=== PATIENT | male | born 1930 | race Caucasian/White ===

== ENCOUNTER 2018-05-08 13:16 | Emergency (ER) | payer OTHER ==
--- OUTSIDE RECORDS SUMMARY | 2018-05-08 13:19 | XMS REPORT ---
:1930 Author Organization eClinicalWorks Care Team Providers Name Role Phone Diaz, Na Provider Role Unavailable Allergies, Adverse Reactions, Alerts Substance Reaction Event Type N.K.D.A. Info Not Available Non Drug Allergy Problems Problem Type Condition Code Onset Dates Condition Status Problem Hyperlipidemia, mixed E78.2 Active Problem Depression with anxiety F41.8 Active Problem Seborrheic dermatitis L21.9 Active Problem COPD (chronic obstructive pulmonary J44.9 Active disease) Assessment Unsteady gait R26.81 Active Problem Benign essential HTN I10 Active Problem Adult general medical examination Z00.00 Active Problem Unsteady gait R26.81 Active Problem Tremor R25.1 Active Problem GERD (gastroesophageal reflux K21.9 Active disease) Problem Sciatica M54.30 Active Assessment 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 Assessment Adult general medical examination Z00.00 Active Assessment 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 Assessment Hyperlipidemia, mixed E78.2 Active Problem 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 Problem 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 Problem Polyp of gallbladder K82.4 Active Problem 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 Problem Allergic rhinitis, seasonal J30.2 Active Medications Medication Code Code Instructions Start End Status Dosage System Date Date Lipitor [facility] 53938246638 40 MG Orally Active 1 tablet Once a day Nexium ND 44813917883 40 MG Orally Active 1 capsule Once a day Gabapentin ND 51399094553 600 MG Orally Active 1 tablet Once a day Xalatan [facility] 37680750413 0.005 % Active 1 drop into Ophthalmic Once affected a day eye in the evening Lexapro ND 19034214847 5 MG Orally Active 1 tablet Once a day Nasonex ND 64131556831 50 MCG/ACT Active 2 sprays in Nasally Once a each day nostril Simethicone [facility] 26996448011 125 MG Orally Active 1 tablet Four times a after meals day and at bedtime as needed Ferrous Sulfate [facility] 57896399304 325 (65 Fe) MG Active 1 tablet Orally Once a day Topamax [facility] 13005149489 25 MG Orally Active 1 tablet Twice a day Arcapta Neohaler [facility] 47268991401 75 MCG Active 1 capsule Inhalation Once a day Atorvastatin [facility] 60549043585 40 MG Active TAKE 1 Calcium TABLET BY MOUTH EVERY DAY Oxygen- [facility] 0 Active not defined Spiriva Respimat [facility] 40197830339 2.5 MCG/ACT Active 2 puffs Inhalation Once a day Nizoral [facility] 01108586756 2 % Externally Active not defined Aspirin 81 [facility] 92029630942 81 MG Orally Active 1 tablet Once a day Metoprolol [facility] 27577419314 25 MG Orally Active 1 tablet Tartrate Twice a day with food Ventolin HFA [facility] 26388312641 108 (90 Base) Active 2 puffs as MCG/ACT needed Inhalation every 6 hrs Results No Known Results Summary Purpose eClinicalWorks Submission
--- OUTSIDE RECORDS SUMMARY | 2018-05-08 13:19 | XMS REPORT ---
:1930 Author Organization eClinicalWorks Care Team Providers Name Role Phone Diaz, Na Provider Role Unavailable Allergies, Adverse Reactions, Alerts Substance Reaction Event Type N.K.D.A. 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 Assessment Sciatica M54.30 Active Assessment Vaccine for tetanus toxoid Z23 Active Assessment Depression with anxiety F41.8 Active Problem 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 Problem 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 Assessment Hyperlipidemia, mixed E78.2 Active Problem 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 Assessment 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 Problem Polyp of gallbladder K82.4 Active Medications Medication Code Code Instructions Start End Status Dosage System Date Date Metoprolol [facility] 99358026916 25 MG Orally Active 1 tablet Tartrate Twice a day with food Arcapta Neohaler [facility] 53963716337 75 MCG Active 1 capsule Inhalation Once a day Lipitor [facility] 14069491870 40 MG Orally Active 1 tablet Once a day Lexapro [facility] 64650749678 5 MG Orally Active 1 tablet Once a day Ferrous Sulfate [facility] 25961333857 325 (65 Fe) MG Active 1 tablet Orally Once a day Topamax [facility] 84690565609 25 MG Orally Active 1 tablet Twice a day Simethicone [facility] 71615176142 125 MG Orally Active 1 tablet Four times a after meals day and at bedtime as needed Nizoral [facility] 84442845361 2 % Externally Active not defined Xalatan [facility] 53419714308 0.005 % Active 1 drop into Ophthalmic Once affected a day eye in the evening Gabapentin [facility] 54880733848 600 MG Orally Active 1 tablet Once a day Aspirin 81 [facility] 15482857661 81 MG Orally Active 1 tablet Once a day Oxygen- [facility] 0 Active not defined Ventolin HFA [facility] 77196957057 108 (90 Base) Active 2 puffs as MCG/ACT needed Inhalation every 6 hrs Atorvastatin [facility] 26610405969 40 MG Active TAKE 1 Calcium TABLET BY MOUTH EVERY DAY Nasonex [facility] 47105223182 50 MCG/ACT Active 2 sprays in Nasally Once a each day nostril Nexium [facility] 51353365683 40 MG Orally Active 1 capsule Once a day Spiriva Respimat [facility] 02635607823 2.5 MCG/ACT Active 2 puffs Inhalation Once a day Results No Known Results Immunizations Vaccine Administration Date Td August 20, 2017 Summary Purpose eClinicalWorks Submission
--- OUTSIDE RECORDS SUMMARY | 2018-05-08 13:19 | XMS REPORT ---
:1930 Author Organization eClinicalWorks Care Team Providers Name Role Phone Diaz, Na Provider Role Unavailable Allergies No Known Allergies Problems Problem Type Condition Code Onset Dates Condition Status Problem Allergic rhinitis, seasonal J30.2 Active Problem Seborrheic dermatitis L21.9 Active Problem Hyperlipidemia, mixed E78.2 Active Problem Benign essential HTN I10 Active Problem GERD (gastroesophageal reflux K21.9 Active disease) Problem COPD (chronic obstructive pulmonary J44.9 Active disease) Problem Tremor R25.1 Active Problem Depression with anxiety F41.8 Active Problem Sciatica M54.30 Active Problem Unsteady gait R26.81 Active Problem 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
--- OUTSIDE RECORDS SUMMARY | 2018-05-08 13:19 | XMS REPORT ---
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 Problem Allergic rhinitis, seasonal J30.2 Active Medications Medication Code Code Instructions Start End Status Dosage System Date Date Ferrous Sulfate [facility] 97155287032 325 (65 Fe) MG Active 1 tablet Orally Once a day Lipitor ND 41718938473 40 MG Orally Active 1 tablet Once a day Xalatan [facility] 10352773431 0.005 % Active 1 drop into Ophthalmic Once affected a day eye in the evening Metoprolol ND 19262866434 25 MG Orally Active 1 tablet Tartrate Twice a day with food Topamax [facility] 28795279464 25 MG Orally Active 1 tablet Twice a day Atorvastatin ND 13670633302 40 MG Active TAKE 1 Calcium TABLET BY MOUTH EVERY DAY Spiriva Respimat ND 05766031327 2.5 MCG/ACT Active 2 puffs Inhalation Once a day Ventolin HFA [facility] 38800990488 108 (90 Base) Active 2 puffs as MCG/ACT needed Inhalation every 6 hrs Oxygen- [facility] 0 Active not defined Nexium ND 96995406354 40 MG Orally Active 1 capsule Once a day Simethicone [facility] 44885359846 125 MG Orally Active 1 tablet Four times a after meals day and at bedtime as needed Gabapentin [facility] 27307981032 600 MG Orally Active 1 tablet Once a day Aspirin 81 [facility] 33371369410 81 MG Orally Active 1 tablet Once a day Arcapta Neohaler [facility] 19552452259 75 MCG Active 1 capsule Inhalation Once a day Nizoral [facility] 27464213382 2 % Externally Active not defined Lexapro [facility] 34941073098 5 MG Orally Active 1 tablet Once a day Nasonex [facility] 42634711813 50 MCG/ACT Active 2 sprays in Nasally Once a each day nostril Results No Known Results Immunizations Vaccine Administration Date FluAD Feb 10, 2018 Summary Purpose eClinicalWorks Submission
[2018-05-08] MEDS ORDERED: LIDOCAINE 1% W/EPI 1:100,000 MDV 50 ML VIAL ONE (15:21)
--- NOTE | 2018-05-08 15:27 | RAD REPORT ---
EXAM DESCRIPTION: RAD - Foot Right 3 View - 05/08/2018 3:00 pm CLINICAL HISTORY: Right foot pain status post injury FINDINGS: No fracture or dislocation is seen. 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
--- NOTE | 2018-05-08 15:40 | EDPHYS ---
Physician Documentation [facility] Name: Nemesio Santillan Age: 87 yrs Sex: Male : 1930 Arrival Date: 05/08/2018 Time: 13:24 Bed 15 Private MD: ED Physician Ignacio Franz HPI: 05/08 15:10 This 87 yrs old Male presents to ER via Wheelchair with complaints of Foot omar Injury. 15:10 The patient presents with decreased range of motion, pain, that is acute. The omar complaints affect the right foot. Context: resulted from stubbing toe on door. Onset: The symptoms/episode began/occurred 1 day(s) ago. Modifying factors: The symptoms are alleviated by elevation of extremity, the symptoms are aggravated by movement. Associated signs and symptoms: The patient has no apparent associated signs or symptoms. Severity of symptoms: At their worst the symptoms were mild. The patient has not experienced similar symptoms in the past. Historical: - Allergies: 13:50 No Known Allergies; ss - Immunization history:: Adult Immunizations up to date, Last tetanus immunization: up to date. - Social history:: Smoking status: Patient/guardian denies using tobacco, the patient reports quitting approximately 16 years ago. - Ebola Screening: : Patient denies exposure to infectious person Patient denies travel to an Ebola-affected area in the 21 days before illness onset. - Family history:: not pertinent. ROS: 15:10 Constitutional: Negative for fever, chills, and weight loss, Eyes: Negative for injury, omar pain, redness, and discharge, ENT: Negative for injury, pain, and discharge, Neck: Negative for injury, pain, and swelling, Cardiovascular: Negative for chest pain, palpitations, and edema, Respiratory: Negative for shortness of breath, cough, wheezing, and pleuritic chest pain, Abdomen/GI: Negative for abdominal pain, nausea, vomiting, diarrhea, and constipation, Back: Negative for injury and pain, : Negative for injury, bleeding, discharge, and swelling, Skin: Negative for injury, rash, and discoloration, Neuro: Negative for headache, weakness, numbness, tingling, and seizure, Psych: Negative for depression, anxiety, suicide ideation, homicidal ideation, and hallucinations, Allergy/Immunology: Negative for hives, rash, and allergies, Endocrine: Negative for neck swelling, polydipsia, polyuria, polyphagia, and marked weight changes, Hematologic/Lymphatic: Negative for swollen nodes, abnormal bleeding, and unusual bruising. 15:10 MS/extremity: Positive for decreased range of motion, pain, of the right fourth toe. Exam: 15:10 Constitutional: This is a well developed, well nourished patient who is awake, alert, omar and in no acute distress. Head/Face: Normocephalic, atraumatic. Eyes: Pupils equal round and reactive to light, extra-ocular motions intact. Lids and lashes normal. Conjunctiva and sclera are non-icteric and not injected. Cornea within normal limits. Periorbital areas with no swelling, redness, or edema. ENT: Nares patent. No nasal discharge, no septal abnormalities noted. Tympanic membranes are normal and external auditory canals are clear. Oropharynx with no redness, swelling, or masses, exudates, or evidence of obstruction, uvula midline. Mucous membranes moist. Neck: Trachea midline, no thyromegaly or masses palpated, and no cervical lymphadenopathy. Supple, full range of motion without nuchal rigidity, or vertebral point tenderness. No Meningismus. Chest/axilla: Normal chest wall appearance and motion. Nontender with no deformity. No lesions are appreciated. Cardiovascular: Regular rate and rhythm with a normal S1 and S2. No gallops, murmurs, or rubs. Normal PMI, no JVD. No pulse deficits. Respiratory: Lungs have equal breath sounds bilaterally, clear to auscultation and percussion. No rales, rhonchi or wheezes noted. No increased work of breathing, no retractions or nasal flaring. Abdomen/GI: Soft, non-tender, with normal bowel sounds. No distension or tympany. No guarding or rebound. No evidence of tenderness throughout. Back: No spinal tenderness. No costovertebral tenderness. Full range of motion. Male : Normal genitalia with no discharge or lesions. Skin: Warm, dry with normal turgor. Normal color with no rashes, no lesions, and no evidence of cellulitis. Neuro: Awake and alert, GCS 15, oriented to person, place, time, and situation. Cranial nerves II-XII grossly intact. Motor strength 5/5 in all extremities. Sensory grossly intact. Cerebellar exam normal. Normal gait. Psych: Awake, alert, with orientation to person, place and time. Behavior, mood, and affect are within normal limits. 15:10 Musculoskeletal/extremity: ROM: full active range of motion, full passive range of motion, Circulation is intact in all extremities. Compartment Syndrome exam of affected extremity: is normal. DVT Exam: no pain, no swelling, no tenderness, negative Homans' sign noted on exam, no appreciated bluish discoloration, no erythema, no increased warmth. Vital Signs: 13:50 BP 125 / 61; Pulse 67; Resp 16; Temp 97.8(TE); Pulse Ox 92% on 1 lpm NC; Weight 107.05 ss kg; Height 5 ft. 10 in. (177.80 cm); Pain 4/10; 16:19 BP 117 / 68; Pulse 64; Resp 18; Temp 97.9; Pulse Ox 93% on 2 lpm NC; ph 13:50 Body Mass Index 33.86 (107.05 kg, 177.80 cm) 13:50 Pt arrivaed on only 1 L NC, and reports he is supposed to be on 2L. Pt switched to ED ss O2 tank and placed on 2L Laceration: 15:17 Wound Repair of 2cm ( 0.8in ) subcutaneous laceration to right fourth toe. Irregularly omar shaped.. Skin/tissue flap noted.. Distal neuro/vascular/tendon intact. Anesthesia: Local anesthetic administered with 3 mls of 1% lidocaine w/ Epi, Local anesthetic administered with 3 mls of 1% lidocaine w/ Epi. Wound prep: Moderate cleansing by me. Skin closed with 2 1-0 Prolene using interrupted sutures and sterile technique. Dressed with non-adherent dressing. Patient tolerated well. MDM: 14:43 Patient medically screened. omar 14:44 Patient medically screened. [facility] 15:13 Data reviewed: vital signs, nurses notes, radiologic studies. [facility] 05/08 13:40 Order name: Foot Right 3 View XRAY 05/08 15:10 Order name: Post-op shoe; Complete Time: 15:45 [facility] 05/08 15:10 Order name: Suture Tray at Bedside; Complete Time: 15:32 [facility] Administered Medications: 16:00 Drug: KeFLEX 500 mg Route: PO; ph 16:17 Follow up: Response: No adverse reaction ph Disposition: 05/08/18 15:39 Discharged to Home. Impression: Laceration without foreign body, right foot - plantar. - Condition is Stable. - Discharge Instructions: Laceration Care, Adult, Laceration Care, Adult, [id number]. - Prescriptions for Keflex 500 mg Oral Capsule - take 1 capsule by ORAL route every 6 hours for 10 days; 28 capsule. Tylenol- Codeine #3 300-30 mg Oral Tablet - take 2 tablets by ORAL route every 6 hours As needed; 20 tablet. - Medication Reconciliation Form, Thank You Letter, Antibiotic Education, Prescription Opioid Use form. - Follow up: Private Physician; When: 2 - 3 days; Reason: Recheck today's complaints, Continuance of care, Re-evaluation by your physician. Follow up: Dr. Brent Denny; When: 2 - 3 days; Reason: Recheck today's complaints, Re-evaluation by your physician. - Problem is new. - Symptoms have improved. Signatures: Dispatcher [employer] EDIgnacio Fitzgerald MD MD cha Smirch, Shelby, RN RN Isabel Webster RN RN ph Corrections: (The following items were deleted from the chart) 16:19 15:39 05/08/2018 15:39 Discharged to Home. Impression: Laceration without foreign body, ph right foot - plantar. Condition is Stable. Discharge Instructions: Laceration Care, Adult, Laceration Care, Adult, [id number]. Prescriptions for Keflex 500 mg Oral Capsule - take 1 capsule by ORAL route every 6 hours for 10 days; 28 capsule, Tylenol-Codeine #3 300-30 mg Oral Tablet - take 2 tablets by ORAL route every 6 hours As needed; 20 tablet. and Forms are Medication Reconciliation Form, Thank You Letter, Antibiotic Education, Prescription Opioid Use. Follow up: Private Physician; When: 2 - 3 days; Reason: Recheck today's complaints, Continuance of care, Re-evaluation by your physician. Follow up: Dr. Brent Denny; When: 2 - 3 days; Reason: Recheck today's complaints, Re-evaluation by your physician. Problem is new. Symptoms have improved. omar
--- NOTE | 2018-05-08 15:40 | ER ---
Nurse's Notes [facility] Name: Nemesio Santillan Age: 87 yrs Sex: Male : 1930 Arrival Date: 05/08/2018 Time: 13:24 Bed 15 Private MD: Diagnosis: Laceration without foreign body, right foot-plantar Presentation: 05/08 13:30 Presenting complaint: Patient states: "I was getting in the shower last night and I ss started to fall backwards and my toes got caught under the shower chair and I think I pulled them apart." reports moderate amount of bleeding from injury that occurred last night. Dressing in place. No bleeding noted at this time. Transition of care: patient was not received from another setting of care. Onset of symptoms was May 07, 2018. Risk Assessment: Do you want to hurt yourself or someone else? Patient reports no desire to harm self or others. Initial Sepsis Screen: Does the patient meet any 2 criteria? No. Patient's initial sepsis screen is negative. Does the patient have a suspected source of infection? No. Patient's initial sepsis screen is negative. Care prior to arrival: None. 13:30 Method Of Arrival: Wheelchair ss 13:30 Acuity: DEVORA 4 ss Historical: - Allergies: 13:50 No Known Allergies; ss - Immunization history:: Adult Immunizations up to date, Last tetanus immunization: up to date. - Social history:: Smoking status: Patient/guardian denies using tobacco, the patient reports quitting approximately 16 years ago. - Ebola Screening: : Patient denies exposure to infectious person Patient denies travel to an Ebola-affected area in the 21 days before illness onset. - Family history:: not pertinent. Screenin:49 Abuse screen: Denies threats or abuse. Denies injuries from another. Nutritional ss screening: No deficits noted. Tuberculosis screening: No symptoms or risk factors identified. Never had TB. Fall Risk None identified. Assessment: 14:49 General: Appears in no apparent distress. comfortable, Behavior is calm, cooperative. ss Pain: Complains of pain in right fourth toe and right fifth toe Pain currently is 5 out of 10 on a pain scale. Quality of pain is described as tender, Is continuous. Neuro: Level of Consciousness is awake, alert, obeys commands, Oriented to person, place, time, situation. Cardiovascular: Capillary refill < 3 seconds is brisk in bilateral fingers. Respiratory: Airway is patent Respiratory effort is even, unlabored, Respiratory pattern is regular, symmetrical. Derm: Skin is thin, with poor turgor. Musculoskeletal: Circulation, motion, and sensation intact. Range of motion: intact in all extremities. Injury Description: small laceration <1 cm noted between 4 th and 5 th digit. Vital Signs: 13:50 BP 125 / 61; Pulse 67; Resp 16; Temp 97.8(TE); Pulse Ox 92% on 1 lpm NC; Weight 107.05 ss kg; Height 5 ft. 10 in. (177.80 cm); Pain 4/10; 16:19 BP 117 / 68; Pulse 64; Resp 18; Temp 97.9; Pulse Ox 93% on 2 lpm NC; ph 13:50 Body Mass Index 33.86 (107.05 kg, 177.80 cm) 13:50 Pt arrivaed on only 1 L NC, and reports he is supposed to be on 2L. Pt switched to ED ss O2 tank and placed on 2L ED Course: 13:24 Patient arrived in ED. sb2 13:50 Triage completed. ss 13:50 Arm band placed on right wrist. ss 14:43 Ignacio Franz MD is Attending Physician. omar 14:49 Adina Kohli, ISAURO is Primary Nurse. 14:49 Patient has correct armband on for positive identification. Bed in low position. Call ss light in reach. 15:01 Foot Right 3 View XRAY In Process Unspecified. EDMS 15:39 Brent Denny DPM is Referral Physician. [facility] 15:44 Assist provider with lumbar puncture: Set up LP tray. Procedure was successful. Patient mh5 tolerated well. 16:18 Patient did not have IV access during this emergency room visit. ph Administered Medications: 16:00 Drug: KeFLEX 500 mg Route: PO; ph 16:17 Follow up: Response: No adverse reaction ph Outcome: 15:39 Discharge ordered by . omar 16:18 Discharged to home ambulatory, with significant other. ph 16:18 Condition: good 16:18 Discharge instructions given to patient, significant other, Instructed on discharge instructions, follow up and referral plans. medication usage, wound care, Demonstrated understanding of instructions, follow-up care, medications, wound care, Prescriptions given X 2. 16:19 Patient left the ED. ph Signatures: Dispatcher [employer] EDIgnacio Fitzgerald MD MD cha Smirch, Shelby, RN RN Isabel Vazquez RN RN Lilly [facility]
[2018-05-08] MEDS ORDERED: CEPHALEXIN 250 MG CAP ONE (15:50)
== END 2018-05-08 16:19 | disposition home or self-care (01) ==
LOC: ER 13:16
PROC: 0JQQ0ZZ Repair Right Foot Subcutaneous Tissue and Fascia, Open Approach (ICD-10-PCS; principal; 2018-05-08)
DX: S91.114A Laceration without foreign body of right lesser toe(s) without damage to nail, initial encounter (principal); X58.XXXA Exposure to other specified factors, initial encounter; M81.0 Age-related osteoporosis without current pathological fracture; Z87.891 Personal history of nicotine dependence
CPT/HCPCS: 62270; 99284

== ENCOUNTER 2019-10-28 07:23 | Day surgery (SDC) | payer OTHER ==
[2019-10-26 12:52] LABS: Protime INR 1.12
--- NOTE | 2019-10-26 12:59 | RAD REPORT ---
EXAM DESCRIPTION: RAD - Chest Pa And Lat (2 Views) - 10/26/2019 12:52 pm CLINICAL HISTORY: preop Chest pain. COMPARISON: CHEST PA AND LAT 2 VIEW dated 02/15/2010; CHEST SINGLE VIEW dated 12/13/2009; CHEST PA AND LAT 2 VIEW dated 01/18/2009 FINDINGS: Emphysematous changes are present. The heart is mildly prominent with a tortuous thoracic aorta. No displaced fractures. IMPRESSION: Prominent COPD.
[~2019-10-28 07:23] MED LIST: HEPA 1000U/500MLS 2,000 UNIT/1,000 ML BAG IV ONE; LIDOCAINE 1% MPF 30 ML VIAL ONE
--- OUTSIDE RECORDS SUMMARY | 2019-10-28 07:30 | XMS REPORT | Continuity of Care Document ---
:1930 Author Organization [facility] t Address [address] [place] [address] Care Team Providers Name Role Phone Unavailable Unavailable Unavailable Problems Condition Condition Condition Status Onset Resolution Last Treating Co mments Source Name Details Category Date Date Treatment Clinician Date Allergic Allergic Problem [facility], [facility] - seasonal seasonal [facility] Seborrheic Seborrheic Problem Active [facility] dermatitis dermatitis Kimberley kes - [facility] Hyperlipid Hyperlipid Diagnosis Active [facility] emia, emia, [facility] - mixed mixed [facility] Benign Benign Problem Active [facility] essential essential [facility] s - HTN HTN Memoria l Outpati ent Clinics GERD GERD Problem Active [facility] (gastroeso (gastroeso Kimberley kes - phageal phageal Memoria reflux reflux l disease) disease) Outpat i ent Clinics COPD COPD Diagnosis Active [facility] (chronic (chronic [facility] - obstructiv obstructiv Me moria e e l pulmonary pulmonary Outp ati disease) disease) ent Clinics Tremor Tremor Problem [facility] Depression Depression Diagnosis Active [facility] with with [facility] - anxiety anxiety [facility] Sciatica Sciatica Problem [facility] Unsteady Unsteady Problem [facility] gait gait [facility] 3-vessel 3-vessel Problem Active [facility] CAD CAD [facility] 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 Kimberley kes - [facility] Osteoarthr Osteoarthr Problem Active [facility] itis of itis of [facility] - multiple multiple [facility] a joints joints l [facility] Polyp of Polyp of Problem Active [facility] gallbladde gallbladde Kimberley kes - r r [facility] ent [facility]ics Adult Adult Problem Active [facility] general [facility] exam[facility] examinatio l n n [facility] ent Clinics Screening Screening Diagnosis Active [facility] PSA PSA [facility] - (prostate (prostate Bertram tara specific specific l antigen) antigen) Outnht ent Clinics Allergic Allergic Diagnosis Active [facility] conjunctiv conjunctiv Kimberley kes - itis of itis of Memoria both eyes both eyes l [facility] ent Clinics Allergies, Adverse Reactions, Alerts This patient has no known allergies or adverse reactions. Medications Ordered Filled Start Stop Current Ordering Indication Dosage Frequency Signature Comments Components Source Medication Medication Date Date Medication? Clinician (SIG) Name Name Azelastine Azelastine 2018-05 Yes Na Diaz [address] [facility] HCl HCl 2-18 into [facility] - 00:00: affected Memoria 00 eye l [facility] ent Clinics Lexapro Lexapro Yes Na Diaz [address] [facility] Metoprolol Metoprolol Yes Na Diaz [address] [facility] Tartrate Tartrate with food Kimberley kes - Memoria l [facility]ics Lipitor Lipitor Yes Na Diaz [address] [facility] Nizoral Nizoral Yes Na Diaz not [facility] defined [facility] Gabapentin Gabapentin Yes Na Diaz [address] [facility] Aspirin 81 Aspirin 81 Yes Na Diaz [address] [facility] Oxygen- Oxygen- Yes Na Diaz not [facility] defined [facility] Ventolin Ventolin Yes Na Diaz [address] [facility] HFA HFA needed [facility]ics Atorvastati Atorvastati Yes Na Diaz TAKE [address] [facility] n Calcium n Calcium TABLET BY [facility] - MOUTH Memoria EVERY DAY l [facility] ent Clinics Nasonex Nasonex Yes Na Diaz [address] in each [facility] - nostril Memoria l [facility] ent [facility]ics Nexium Nexium Yes Na Diaz [address] [facility]ics Spiriva Spiriva Yes Na Diaz [address] Respimat Respimat [facility]ics Ketoconazol Ketoconazol Yes Na Diaz APPLY TO [facility] e e AFFECTED [facility] - AREA Memoria TOPICALLY l TWICE A Outpati DAY ent Clinics Xalatan Xalatan Yes Na Diaz [address] [facility] into [facility] - affected [facility] eye in the l evening [facility] Arcapta Arcapta Yes Na Diaz [address] Neohaler Neohaler [facility] Topamax Topamax Yes Na Diaz [address] [facility] Simethicone Simethicone Yes Na Diaz [address] [facility] after [facility] - meals and [facility]oria at bedtime l as needed [facility] Ferrous Ferrous Yes Na Diaz [address] Sulfate Sulfate [facility] Immunizations Ordered Filled Immunization Date Status Comments Sourc e Immunization Name Name FluAD FluAD 2019-03-[address] [facility] FluAD FluAD 2018-02-[address] [facility]00 [facility] Td Td 2017-08-[address] [facility] Procedures This patient has no known procedures. Encounters Start End Encounter Admission Attending Care Care Encounter Source Date/Time Date/Time Type Type Clinicians Facility Department ID 2019-04-28 2019-04-28 [facility] [id number] [facility] 10:40:00 10:40:00 Jaco Solarsi [facility] 2019-03-05 2019-03-05 [facility] [id number] [facility] 13:40:00 13:40:00 t [email or web address] Medicine Outpati ent Clinics 2018-11-04 2018-11-04 [facility] [id number] [facility] 10:40:00 10:40:00 Jaco Solarsi [facility] Medicine [facility] 2018-05-19 2018-05-19 [facility] [id number] [facility] 13:45:00 13:45:00 Jaco Solarsi [facility] Medicine [facility] 2018-05-08 2018-05-08 [facility] [id number] [facility] 10:30:00 10:30:00 t [email or web address] Medicine Outpati ent Clinics 2018-02-10 2018-02-10 [facility] [id number] [facility] 09[facility]30:00 09:30:00 t [email or web address] Medicine Outpati ent Clinics 2017-11-04 2017-11-04 [facility] [id number] [facility] [address] 10:00:00 10:00:00 Jaco Solarsi [facility] Medicine Outpati ent Clinics 2017-09-05 2017-09-05 [facility] [id number] [address] 15:57:00 15:57:00 Jaco Solarsi [facility] Medicine Outpati ent Clinics 2017-08-20 2017-08-20 [facility] [id number] 08:30:00 08:30:00 Jaco Solarsi [facility] Outpati ent Clinics Results This patient has no known results.
[2019-10-28] MEDS ORDERED: NA CHLORIDE 0.9% 500 ML ONE (07:53)
[2019-10-28] MEDS ORDERED: NA CHLORIDE 0.9% 0 ML ONE (08:31)
[2019-10-28] MEDS ORDERED: MIDAZOLAM HCL 2 MG/2 ML INJ ONE ×2 (08:31→09:00)
[2019-10-28] MEDS ORDERED: FENTANYL CITR 100 MCG/2 ML ONE (08:31)
[2019-10-28] MEDS ORDERED: ATROPINE SULF 1 MG/10 ML SYR IV ONE (08:31)
[2019-10-28] MEDS ORDERED: NITROGLYCERIN 100 MCG/ML SYR (for cath lab use only) IV ONE (08:32)
[2019-10-28] MEDS ORDERED: NITROGLYCERIN/D5W 0 MG/0 ML BTL IV ONE (08:32)
[2019-10-28] MEDS ORDERED: HEPA 1000U/500MLS 2,000 UNIT/1,000 ML BAG IV ONE (08:36)
[2019-10-28] MEDS ORDERED: METHYLPREDNISOLONE 125 MG INJ ONE (09:01)
--- NOTE | 2019-10-28 09:46 | OP ---
Date of Procedure: 10/28/2019 Surgeon: Guanakito Starr MD Leave Coordinator: Gabi Yao. The patient will be at bedrest for 2 hours. He will go home today. I will see him in the office in the next 2 weeks. We will do serial ultrasounds or CT angiogram of his aorta in the future for teresa almeida. I would like to note that the patient is allergic to iodine and he did receive Solu-Medrol IV a nd p.o. prednisone before the procedure. Procedures Performed: Left heart catheterization, selective coronary arteriogram, and abdominal bianka ogram. Indication: Chest pain, positive stress test, abdominal aortic aneurysm. The patient was brought to the kiln labourer. He is 89. He received Versed and fentanyl for sedation, prepped and draped in the ro utine sterile fashion. A 6-Turkish sheath introduced in the right common femoral artery. Angio-Seal was used to close the case. A JL4 was used to cannulate the left main. The right iliacs were very t ortuous. I had to use a Wholey for exchange. However, injection of the left main showed a normal le ft main, diffuse plaquing in the circumflex, nondominant left system. The mid LAD stent that was pat ent was 0% residual. Using the long Wholey wire, we exchanged to the JR4 catheter. The JR4 cannulat ed the right main injection. They have showed a patent right coronary large vessel, diffuse plaquing , right dominant. A pigtail catheter was then used to do the abdominal angiogram with runoff. The p igtail catheter was advanced selectively above the renals. Renal abdominal angiogram showed normal r enals, normal splenic artery, normal hepatic artery. The aorta was diffusely enlarged, was fusiform, was tortuous with significant plaque buildup. It was not saccular and measured about 4.5 cm consist ent with what the ultrasound shows. There was a very tortuous iliac with diffuse plaquing, but no fo monster stenosis. There were no complications. Blood Loss: 5 mL. Postoperative Diagnosis: Coronary artery disease, moderate and abdominal aortic aneurysm, moderate s ize, no dissection. Plan: Plan is for medical therapy. Anesthesia: Total conscious sedation was 45 minutes. NB/MODL Voice ID: [id number] Report ID: [id number]
[2019-10-28 11:48] VITALS: BP 132/60; TEMP 97; O2SAT 94
== END 2019-10-28 11:35 | disposition home health service (06) ==
LOC: CCL 07:23
DX: I25.10 Atherosclerotic heart disease of native coronary artery without angina pectoris (principal); I71.4 Abdominal aortic aneurysm, without rupture; I65.23 Occlusion and stenosis of bilateral carotid arteries; I73.9 Peripheral vascular disease, unspecified; I10 Essential (primary) hypertension; E78.5 Hyperlipidemia, unspecified; Z11.59 Encounter for screening for other viral diseases; Z95.5 Presence of coronary angioplasty implant and graft; Z79.82 Long term (current) use of aspirin; Z87.891 Personal history of nicotine dependence; Z82.49 Family history of ischemic heart disease and other diseases of the circulatory system
CPT/HCPCS: 36415; 85610; 85730; 71046; 36200; 93454; U0002; C1893; C1760; J2250; J3010; J7040; J2930; J0583

== ENCOUNTER 2021-04-07 01:02 | Emergency (ER) | payer OTHER ==
--- OUTSIDE RECORDS SUMMARY | 2021-04-07 01:05 | XMS REPORT | Continuity of Care Document ---
:1930 Author Organization [facility] t Address [address] [place] [address] Care Team Providers Name Role Phone Unavailable Unavailable Unavailable Problems This patient has no known problems. Allergies, Adverse Reactions, Alerts This patient has no known allergies or adverse reactions. Medications Ordered Filled Start Stop Current Ordering Indication Dosage Frequency Signature Comments Components Source Medication Medication Date Date Medication? Clinician (SIG) Name Name Lexapro Lexapro Yes Na Diaz [address] [facility] Metoprolol Metoprolol Yes Na Diaz [address] [facility] Tartrate Tartrate with food Kimberley kes - Memoria l [facility] ent Clinics Lipitor Lipitor Yes Na Diaz [address] [facility] Nizoral Nizoral Yes Na Diaz not [facility] defined [facility] Aspirin 81 Aspirin 81 Yes Na Diaz [address] [facility] Oxygen- Oxygen- Yes Na Diaz not [facility] defined [facility] Ventolin Ventolin Yes Na Diaz [address] [facility] HFA HFA needed [facility] Lipitor Lipitor Yes Na Diaz [address] [facility] Nasonex Nasonex Yes Na Diaz [address] in each [facility] - nostril [facility] l [facility] ent [facility]ics Nexium Nexium Yes Na Diaz [address] [facility]ics Spiriva Spiriva Yes Na Diaz [address] Respimat Respimat [facility] Xalatan Xalatan Yes Na Diaz [address] [facility] into [facility] - affected [facility]oria eye in the l evening [facility]ics Arcapta Arcapta Yes Na Diaz [address] Neohaler Neohaler [facility] Topamax Topamax Yes Na Diaz [address] [facility] Simethicone Simethicone Yes Na Diaz [address] [facility] after [facility] - meals and Memoria at bedtime l as needed [facility]ics Ferrous Ferrous Yes Na Diaz [address] Sulfate Sulfate [facility] Ketoconazol Ketoconazol Yes Na Diaz APPLY TO [facility] e e AFFECTED [facility] - AREA Memoria TOPICALLY l TWICE A Outpati DAY ent Clinics Restasis Restasis Yes Na Diaz [address] [facility] affected [facility] eye l Outpati ent Clinics Ipratropium Ipratropium Yes Na Diaz [address] [place] in each [facility] - nostril [facility] l [facility] Lexapro Lexapro Yes Na Diaz [address] [facility] Latanoprost Latanoprost Yes Na Diaz [address] [facility] into [facility] - affected [facility] eye in the l evening Outpati ent Clinics Trelegy Trelegy Yes Na Diaz [address] [facility] Ellipta Ellipta [facility] Gabapentin Gabapentin Yes Na Diaz [address] [facility] Azelastine Azelastine Yes Na Diaz [address] [facility] HCl HCl into [facility] - affected [facility] eye l [facility] Immunizations Ordered Filled Immunization Date Status Comments Sour e Immunization Name Name FluAD FluAD 2019-03-[address] [facility] FluAD FluAD 2018-02-[address] [facility] Td Td 2017-08-[address] [facility] Procedures This patient has no known procedures. Encounters Start End Encounter Admission Attending Care Care Encounter Source Date/Time Date/Time Type Type Clinicians Facility Department ID 2020-10-24 2020-10-24 Outpatient [facility] [id number] [facility] 2020-10-24 2020-10-24 Outpatient [facility] [id number] [facility] 2020-10-12 2020-10-12 Outpatient [facility] [id number] [facility] 2020-04-27 2020-04-27 Outpatient [facility] [id number] [facility] 2020-04-11 2020-04-11 Outpatient [facility] [id number] [facility] 2019-10-27 2019-10-27 [facility] [id number] [facility] 10[facility]20:00 10:20:00 [place] [employer]Supp s - [facility] l Medicine Outpati ent Clinics 2019-04-28 2019-04-28 [facility] [id number] [facility] 10:40:00 10:40:00 t [place] [employer] s - Drive [facility] Family [facility] l Medicine Outpati ent Clinics 2019-03-05 2019-03-05 [facility] [id number] 13:40:00 13:40:00 t [place] [employer]Supp s - Drive [facility] Family Medicine l Medicine Outpati ent Clinics 2018-11-04 2018-11-04 [facility] [id number] [facility] 10:40:00 10:40:00 t A[place]on Afton [employer] s - Drive [facility] Family [facility] l Medicine Outpati ent Clinics 2018-05-19 2018-05-19 [facility] [id number] [facility] 13:45:00 13:45:00 t [place] Afton [employer] s - Drive [facility] Family [facility] l Medicine Outpati ent Clinics 2018-05-08 2018-05-08 [facility] [id number] [facility] 10:30:00 10:30:00 t Kira Talent [facility] Medicine Outpati ent Clinics 2018-02-10 2018-02-10 [facility] [id number] [facility] 09:30:00 09:30:00 t Kira Talent [facility] Medicine Outpati ent Clinics 2017-11-04 2017-11-04 [facility] [id number] [facility] [address] 10:00:00 10:00:00 t Kira Talent [facility] Medicine Outpati ent Clinics 2017-09-05 2017-09-05 [facility] [id number] [facility] 15:57:00 15:57:00 t Kira Talent [facility] Medicine Outpati ent Clinics 2017-08-20 2017-08-20 [facility] [id number] 08:30:00 08:30:00 t Kira Talent [facility] Outpati ent Clinics Results This patient has no known results.
[2021-04-07] MEDS ORDERED: NA CHLORIDE 0.9% 1,000 ML ONE ×3 (01:53→08:37)
[2021-04-07] MEDS ORDERED: FAMOTIDINE 20 MG/2 ML VIAL IV ONE (01:53)
[2021-04-07] MEDS ORDERED: ONDANSETRON 4 MG/2 ML VIAL ONE ×3 (01:53→07:37)
[2021-04-07] MEDS ORDERED: MORPHINE 4 MG/ML SYR ONE (01:53)
[2021-04-07 02:15] LABS: Absolute Lymphocytes (CBC) 1.4 K/uL (0.7-4.9); Basophils % 0.1 % (0-1.3); Hematocrit 52.4 % (39.6-49.0); Lymphocytes % 7.7 % (15.3-44.8); MPV 9.7 fL (7.6-11.3); RBC Red Blood Cell Count 5.25 M/uL (4.33-5.43)
[2021-04-07 02:30] LABS: Albumin 3.7 g/dL (3.4-5.0); Bilirubin Direct 0.1 mg/dL (0-0.2); Bilirubin Total 0.5 mg/dL (0.2-1.0)
[2021-04-07] MEDS ORDERED: METOCLOPRAMIDE 10 MG/2mL INJ ONE (03:50)
--- NOTE | 2021-04-07 03:55 | RAD REPORT ---
EXAM DESCRIPTION: CT - Abdomen Pelvis W Contrast - 04/07/2021 3:42 am CLINICAL HISTORY: Abdominal pain COMPARISON: 2013 TECHNIQUE: Computed axial tomography of the abdomen pelvis was obtained. 100 cc Isovue-300 was admin istered intravenously. Oral contrast was not requested which limits evaluation of bowel. All CT scans are performed using dose optimization technique as appropriate and may include automated exposure control or mA/KV adjustment according to patient size. FINDINGS: Portal venous air is present. No free air. Pneumatosis intestinalis is not visualized Otherwise liver, pancreas, adrenals and kidneys demonstrate no significant abnormality. Splenic granu lomata. Cholelithiasis is present. Gallbladder is distended. Mild to moderate anterior subluxation L5 on S1. Spondylolysis L5. Aneurysm of lower abdominal aorta with AP diameter of 4.7 centimeters contains a large amount of thro mbus. There is no evidence of diverticulitis. Mesenteric calcifications without significant change. No soft tissue component noted. Ventral hernia repair IMPRESSION: Portal venous air may indicate bowel ischemia. Cholelithiasis. Gallbladder is distended. 4.7 centimeter infrarenal abdominal aortic aneurysm
[2021-04-07] MEDS ORDERED: PIPERACIL/TAZO 3.375 GM VIAL IV ONE (04:41)
--- NOTE | 2021-04-07 05:51 | ER ---
Nurse's Notes [facility] Name: Nemesio Santillan Age: 89 yrs Sex: Male : 1930 Arrival Date: 04/07/2021 Time: 01:05 Bed 14 Private MD: Diagnosis: Lower abdominal pain, unspecified-Possible Bowel Ischemia;Nausea with vomiting, unspecified Presentation: 04/07 01:25 Chief complaint: Patient states: he started having abdominal pain, vomiting and bb diarrhea since approx 1999 last night denies fever. Coronavirus screen: vomiting. Ebola Screen: No symptoms or risks identified at this time. Initial Sepsis Screen: Does the patient meet any 2 criteria? No. Patient's initial sepsis screen is negative. Does the patient have a suspected source of infection? No. Patient's initial sepsis screen is negative. Risk Assessment: Do you want to hurt yourself or someone else? Patient reports no desire to harm self or others. Onset of symptoms was April 06, 2021. 01:25 Method Of Arrival: Wheelchair bb 01: Acuity: DEVORA 3 bb Triage Assessment: General: Appears in no apparent distress. uncomfortable, Behavior is calm, cooperative. bb Pain: Complains of pain in abdomen. Neuro: Level of Consciousness is awake, alert, obeys commands, Oriented to person, place, time, situation. Cardiovascular: Capillary refill < 3 seconds. Respiratory: Respiratory effort is unlabored, Respiratory pattern is regular. GI: Abdomen is round Reports lower abdominal pain, diarrhea, vomiting. Derm: Skin is clammy, Skin is pale, Skin temperature is cool. Musculoskeletal: Circulation, motion, and sensation intact. Historical: - Allergies: Sulfa (Sulfonamide Antibiotics); bb - Home Meds: Unable to obtain [Active]; bb - Immunization history:: Adult Immunizations up to date, Client reports receiving the 2nd dose of the Covid vaccine. - Social history:: Smoking status: Patient/guardian denies using tobacco. Screenin: Abuse screen: Denies threats or abuse. Denies injuries from another. Nutritional mr2 screening: No deficits noted. Tuberculosis screening: No symptoms or risk factors identified. Fall Risk None identified. Assessment: : GI: Reports lower abdominal pain, intolerance of fluids, intolerance of food, nausea, mr2 vomiting. 05:46 Reassessment: initiated transfer to [facility] Dr Allen spoke to vascular bb physician who accepted pt but awaiting contract administrator approval. 07:04 Reassessment: Lactic Acid = 2.8, critical lab report received from [facility] sl2 instructor adjunct pharmacy technician, critical results reported to EDP, Dr Allen. 07:15 Reassessment:. General: Appears in no apparent distress. uncomfortable, Behavior is vg1 calm, cooperative. Pain: Complains of pain in abdomen Pain currently is 4 out of 10 on a pain scale. Neuro: Level of Consciousness is awake, alert, obeys commands, Oriented to person, place, time, situation. Cardiovascular: Patient's skin is warm and dry. Respiratory: Airway is patent Respiratory effort is even, unlabored, Respiratory pattern is tachypnea. GI: Abdomen is round Reports lower abdominal pain, intolerance of fluids, intolerance of food, nausea, vomiting. : No signs and/or symptoms were reported regarding the genitourinary system. EENT: No signs and/or symptoms were reported regarding the EENT system. Derm: Skin is intact, is healthy with good turgor. Musculoskeletal: Circulation, motion, and sensation intact. Vital Signs: 01:25 BP 162 / 68; Pulse 59; Resp 16 S; Temp 97.4(O); Pulse Ox 95% on R/A; Weight 108.86 kg bb (R); Height 5 ft. 10 in. (177.80 cm) (R); Pain 6/10; 05:32 BP 168 / 82; Pulse 64; Resp 18; Temp 98.3; Pulse Ox 97% on R/A; mr2 07:30 BP 157 / 76; Pulse 90; Resp 24; Pulse Ox 94% on 2 lpm NC; vg1 08:00 BP 161 / 70; Pulse 89; Resp 18; Pulse Ox 93% on 2 lpm NC; vg1 01:25 Body Mass Index 34.44 (108.86 kg, 177.80 cm) ED Course: 01:05 Patient arrived in ED. bp1 01:11 Bed in low position. Call light in reach. Side rails up X2. mr2 01:11 No provider procedures requiring assistance completed. Inserted saline lock: 20 gauge mr2 in left antecubital area, using aseptic technique. 01:27 Triage completed. bb 01:27 Yolis Phipps FNP-C [facility] kb 01:27 Arm band placed on Patient placed in an exam room, on a stretcher, on pulse oximetry. bb 01:35 Sandeep Allen MD is Attending Physician. 7 02:10 Binh Rodgers, ISAURO is Primary Nurse. mr2 03:41 CT Abd/Pelvis - IV Contrast Only In Process Unspecified. EDMS 07:22 Attending Physician role handed off by Sandeep Allen MD omar 07:22 Ignacio Franz MD is Attending Physician. omar 08:51 Patient transferred, IV remains in place. vg1 Administered Medications: 02:10 Drug: NS 0.9% 1000 ml Route: IV; Rate: 1000 ml; Site: left antecubital; bb 02:11 Drug: morphine 2 mg Route: IVP; Site: left antecubital; mr2 02:11 Drug: Zofran (Ondansetron) 4 mg Route: IVP; Site: left antecubital; mr2 02:11 Drug: Pepcid (famotidine) 20 mg Route: IVP; Site: left antecubital; mr2 03:59 Drug: Reglan (metoCLOPramide) 10 mg Route: IVP; Site: left antecubital; mr2 04:00 Drug: morphine 2 mg Route: IVP; Site: left antecubital; mr2 04:43 Drug: Zosyn (piperacillin-tazobactam) 3.375 grams Route: IVPB; Infused Over: 60 mins; mr2 Site: right antecubital; 05:30 Follow up: IV Status: Completed infusion; IV Intake: 100ml vg1 07:32 Drug: NS 0.9% 1000 ml Route: IV; Rate: 1 bolus; Site: left antecubital; vg1 08:50 Follow up: IV Status: Completed infusion; IV Intake: 1000ml vg1 07:43 Drug: vancoMYCIN 1 grams Route: IVPB; Infused Over: 2 hrs; Site: left antecubital; vg1 08:50 Follow up: IV Status: Infusion continued upon transfer vg1 08:45 Drug: NS 0.9% 1000 ml Route: IV; Rate: 1 bolus; Site: left antecubital; vg1 08:50 Follow up: IV Status: Infusion continued upon transfer vg1 Intake: 05:30 IV: 100ml; Total: 100ml. vg1 08:50 IV: 1000ml; Total: 1100ml. vg1 Outcome: 05:49 ER care complete, transfer ordered by . [facility] 08:51 Transferred by ground EMS vg1 08:51 Condition: stable 08:51 Instructed on the need for transfer. 08:51 Patient left the ED. vg1 Signatures: Dispatcher [employer] EDMS Yolis Phipps, BABCOCK TESTER-C BABCOCK TESTER-Ignacio Gonsalez MD MD cha Ballard, Brenda, RN RN Deedee Osborne, RN RN vg1 Inga Hollins Maurice, MD MD [facility] Binh Rodgers, RN RN mr2 Yuli Colon, RN RN sl2
--- NOTE | 2021-04-07 05:51 | EDPHYS ---
Physician Documentation [facility] Name: Nemesio Santillan Age: 89 yrs Sex: Male : 1930 Arrival Date: 04/07/2021 Time: 01:05 Bed 14 Private MD: ALEJANDRO Physician Ignacio Franz HPI: 04/07 01:46 This 89 yrs old Male presents to ER via Wheelchair with complaints of Vomiting. mh7 01:46 The patient presents to the emergency department with nausea, that is moderate, mh7 vomiting, that is intermittent, described as clear fluid, diarrhea, that is intermittent, abdominal pain, of the abdomen diffusely, described as intermittent, vague,\E\ waxing and waning, and does not radiate. Onset: The symptoms/episode began/occurred yesterday, at 20:00. Possible causes: bad food exposure, possibly bad home food. The symptoms are aggravated by nothing. The symptoms are alleviated by nothing. Associated signs and symptoms: Pertinent negatives: anorexia, belching, constipation, dysuria, fever, flatulence, GI bleeding, hematuria. Severity of symptoms: At their worst the symptoms were moderate last night, in the emergency department the symptoms have improved moderately. Historical: - Allergies: : Sulfa (Sulfonamide Antibiotics); bb - Home Meds: : Unable to obtain [Active]; bb - Immunization history:: Adult Immunizations up to date, Client reports receiving the 2nd dose of the Covid vaccine. - Social history:: Smoking status: Patient/guardian denies using tobacco. ROS: 01:46 Constitutional: Negative for fever, chills, and weight loss, Eyes: Negative for injury, mh7 pain, redness, and discharge, ENT: Negative for injury, pain, and discharge, Neck: Negative for injury, pain, and swelling, Cardiovascular: Negative for chest pain, palpitations, and edema, Respiratory: Negative for shortness of breath, cough, wheezing, and pleuritic chest pain, Back: Negative for injury and pain, : Negative for injury, bleeding, discharge, and swelling, MS/Extremity: Negative for injury and deformity, Skin: Negative for injury, rash, and discoloration, Neuro: Negative for headache, weakness, numbness, tingling, and seizure, Psych: Negative for depression, anxiety, suicide ideation, homicidal ideation, and hallucinations, Allergy/Immunology: Negative for hives, rash, and allergies, Endocrine: Negative for neck swelling, polydipsia, polyuria, polyphagia, and marked weight changes, Hematologic/Lymphatic: Negative for swollen nodes, abnormal bleeding, and unusual bruising. Exam: 01:46 Constitutional: This is a well developed, well nourished patient who is awake, alert, mh7 and in no acute distress. Head/Face: Normocephalic, atraumatic. Eyes: Pupils equal round and reactive to light, extra-ocular motions intact. Lids and lashes normal. Conjunctiva and sclera are non-icteric and not injected. Cornea within normal limits. Periorbital areas with no swelling, redness, or edema. Neck: Trachea midline, no thyromegaly or masses palpated, and no cervical lymphadenopathy. Supple, full range of motion without nuchal rigidity, or vertebral point tenderness. No Meningismus. Chest/axilla: Normal chest wall appearance and motion. Nontender with no deformity. No lesions are appreciated. Cardiovascular: Regular rate and rhythm with a normal S1 and S2. No gallops, murmurs, or rubs. Normal PMI, no JVD. No pulse deficits. Respiratory: Lungs have equal breath sounds bilaterally, clear to auscultation and percussion. No rales, rhonchi or wheezes noted. No increased work of breathing, no retractions or nasal flaring. 01:46 Back: No spinal tenderness. No costovertebral tenderness. Full range of motion. Skin: Warm, dry with normal turgor. Normal color with no rashes, no lesions, and no evidence of cellulitis. MS/ Extremity: Pulses equal, no cyanosis. Neurovascular intact. Full, normal range of motion. Neuro: Awake and alert, GCS 15, oriented to person, place, time, and situation. Cranial nerves II-XII grossly intact. Motor strength 5/5 in all extremities. Sensory grossly intact. Cerebellar exam normal. Normal gait. Psych: Awake, alert, with orientation to person, place and time. Behavior, mood, and affect are within normal limits. 01:46 Abdomen/GI: Inspection: obese scar(s), are noted in the umbilical area and suprapubic area, Bowel sounds: normal, in all quadrants, Palpation: mild abdominal tenderness, in the suprapubic area, right lower quadrant and left lower quadrant, mass, is not appreciated, rebound tenderness, is not appreciated, voluntary guarding, is not appreciated, involuntary guarding, is not appreciated, no appreciated organomegaly, Rectal exam: the exam is deferred, because of patient request, Indicators: McBurney's point is not tender, Bain's sign is negative, Rovsing's sign is negative, Obturator sign is negative, Psoas sign is negative, Liver: no appreciated palpable abnormalities, Hernia: not appreciated. Vital Signs: 01:25 BP 162 / 68; Pulse 59; Resp 16 S; Temp 97.4(O); Pulse Ox 95% on R/A; Weight 108.86 kg bb (R); Height 5 ft. 10 in. (177.80 cm) (R); Pain 6/10; 05:32 BP 168 / 82; Pulse 64; Resp 18; Temp 98.3; Pulse Ox 97% on R/A; mr2 07:30 BP 157 / 76; Pulse 90; Resp 24; Pulse Ox 94% on 2 lpm NC; vg1 08:00 BP 161 / 70; Pulse 89; Resp 18; Pulse Ox 93% on 2 lpm NC; vg1 01:25 Body Mass Index 34.44 (108.86 kg, 177.80 cm) bb MDM: 05:46 Differential diagnosis: Nonspecific abd pain, gastritis, appendicitis, diverticulitis, mh7 viral gastroenteritis, gastroenteritis. Data reviewed: vital signs, nurses notes, lab test result(s), CBC, electrolytes, urinalysis, EKG, radiologic studies, CT scan. Data interpreted: Pulse oximetry: on room air is 97 %. Interpretation: normal. Counseling: I had a detailed discussion with the patient and/or guardian regarding: the historical points, exam findings, and any diagnostic results supporting the discharge/admit diagnosis, the presence of at least one elevated blood pressure reading (>120/80) during this emergency department visit, lab results, radiology results, the need to transfer to another facility, [facility]] does not immediately have the required specialist. Response to treatment: the patient's symptoms have markedly improved after treatment. Physician consultation: Navneet Burks MD was contacted at 04:45, after a discussion of the case, a recommendation for transfer for higher level of care is made, Dr. Burks recommend transferring this patient may need a vascular surgeon involved in his care which we do not have here.. 05:[address] [facility] 04/07 01:45 Order name: Basic Metabolic Panel; Complete Time: 02:46 [facility] 04/07 01:45 Order name: CBC with Diff; Complete Time: 02:46 [facility] 04/07 01:45 Order name: Hepatic Function; Complete Time: 02:46 [facility] 04/07 01:45 Order name: Lipase; Complete Time: 02:46 [facility] 04/07 04:47 Order name: Lactate [facility] 04/07 04:47 Order name: Protime (+inr) [facility] 04/07 01:45 Order name: CT Abd/Pelvis - IV Contrast Only; Complete Time: 04:17 [facility] 04/07 04:47 Order name: Ptt, Activated; Complete Time: 07:22 [facility] 04/07 04:48 Order name: Lactate; Complete Time: 07:22 [facility] 04/07 04:48 Order name: Protime (+INR); Complete Time: 07:22 [facility] 04/07 05:45 Order name: SARS-COV-2 RT PCR; Complete Time: 07:22 [facility] 04/07 07:23 Order name: Urine Culture [facility] 04/07 01:45 Order name: IV Saline Lock; Complete Time: 07:17 [facility] 04/07 01:45 Order name: Labs collected and sent; Complete Time: 07:17 [facility] 04/07 01:45 Order name: EKG; Complete Time: 01:46 [facility] 04/07 01:45 Order name: EKG - Nurse/Tech; Complete Time: 04:00 [facility] Administered Medications: 02:10 Drug: NS 0.9% 1000 ml Route: IV; Rate: 1000 ml; Site: left antecubital; bb 02:11 Drug: morphine 2 mg Route: IVP; Site: left antecubital; mr2 02:11 Drug: Zofran (Ondansetron) 4 mg Route: IVP; Site: left antecubital; mr2 02:11 Drug: Pepcid (famotidine) 20 mg Route: IVP; Site: left antecubital; mr2 03:59 Drug: Reglan (metoCLOPramide) 10 mg Route: IVP; Site: left antecubital; mr2 04:00 Drug: morphine 2 mg Route: IVP; Site: left antecubital; mr2 04:43 Drug: Zosyn (piperacillin-tazobactam) 3.375 grams Route: IVPB; Infused Over: 60 mins; mr2 Site: right antecubital; 05:30 Follow up: IV Status: Completed infusion; IV Intake: 100ml vg1 07:32 Drug: NS 0.9% 1000 ml Route: IV; Rate: 1 bolus; Site: left antecubital; vg1 08:50 Follow up: IV Status: Completed infusion; IV Intake: 1000ml vg1 07:43 Drug: vancoMYCIN 1 grams Route: IVPB; Infused Over: 2 hrs; Site: left antecubital; vg1 08:50 Follow up: IV Status: Infusion continued upon transfer vg1 08:45 Drug: NS 0.9% 1000 ml Route: IV; Rate: 1 bolus; Site: left antecubital; vg1 08:50 Follow up: IV Status: Infusion continued upon transfer vg1 Disposition Summary: 04/07/21 05:49 Transfer Ordered Reason: Higher level of care mh7 Condition: Stable mh7 Problem: new mh7 Symptoms: have improved mh7 Transfer Location: [facility](04/07/21 05:59) [facility] Accepting Physician: Dr. Dickens(04/07/21 08:51) vg1 Diagnosis - Nausea with vomiting, unspecified mh7 - Lower abdominal pain, unspecified - Possible Bowel Ischemia(04/07/21 05:58) [facility] Discharge Instructions: - Discharge Summary Sheet bb Forms: - SBAR form bb - Medication Reconciliation Form [facility] Signatures: Dispatcher [employer] EDIgnacio Fitzgerald MD MD cha Ballard, Brenda, RN RN bb Deedee Can RN RN vg1 Sandeep Allen MD MD mh7 Binh Rodgers RN RN mr2 Corrections: (The following items were deleted from the chart) 05:45 04:54 CORONAVIRUS+MR.LAB.BRZ ordered. ALEJANDROFL EDMS 05:58 05:49 Dr. Surgeon lombardo 7 05:58 05:49 Lower abdominal pain, unspecified 7 7 05:59 05:49 Other Acute Care Facility 7 7 05:59 05:58 [facility] 08[facility] 05:59 Dr. Maninder mh7 vg1
[2021-04-07 06:38] LABS: Protime INR 1.17
[2021-04-07] MEDS ORDERED: VANCOMYCIN/NS 1 gm 1 GM/250 ML BAG IVPB ONE (07:45)
[2021-04-07 08:58] VITALS: TEMP 98.3
[2021-04-07 09:01] VITALS: BP 161/70; O2SAT 93
== END 2021-04-07 08:51 | disposition short-term general hospital (02) ==
LOC: ER 01:02
DX: R10.30 Lower abdominal pain, unspecified (principal); Z20.822 Contact with and (suspected) exposure to COVID-19; Z88.2 Allergy status to sulfonamides
CPT/HCPCS: 93005; 85025; 80048; 36415; 85610; 80076; 83605; 85730; 83690; 74177; 99285; U0003; Q9967; J2765; J2543; J3370; J7030 ×3; J2405 ×3

== ENCOUNTER 2021-05-21 10:22 | Emergency (ER) | payer OTHER ==
--- OUTSIDE RECORDS SUMMARY | 2021-05-21 10:25 | XMS REPORT | Continuity of Care Document ---
:1930 Author Organization [facility] t Address [address] [place] [address] Care Team Providers Name Role Phone FLORA Attending Clinician Unavailable GAYLE HINES Attending Clinician Unavailable GAYLE HINES Admitting Clinician Unavailable Payers Payer Name Policy Type Policy Number Effective Date Expiration Date Sary mars [facility] MEDICARE [id number] 2021 2024 ADVANTAGE 00:00:00 00:00:00 Problems This patient has no known problems. Allergies, Adverse Reactions, Alerts This patient has no known allergies or adverse reactions. Medications Ordered Filled Start Stop Current Ordering Indication Dosage Frequency Signature Comments Components Source Medication Medication Date Date Medication? Clinician (SIG) Name Name Lexapro Lexapro Yes Na Diaz [address] [facility] Metoprolol Metoprolol Yes Na Diaz [address] [facility] Tartrate Tartrate with food [facility] Lipitor Lipitor Yes Na Diaz [address] [facility] Nizoral Nizoral Yes Na Diaz not [facility] defined [facility] Aspirin 81 Aspirin 81 Yes Na Diaz [address] [facility] Oxygen- Oxygen- Yes Na Diaz not [facility] Ventolin Ventolin Yes Na Diaz [address] [facility] HFA HFA needed [facility] Lipitor Lipitor Yes Na Diaz [address] [facility] Nasonex Nasonex Yes Na Diaz [address] [facility] each [facility] nostril [facility] Nexium Nexium Yes Na Diaz [address] [facility] Spiriva Spiriva Yes Na Diaz [address] [facility] [address] Respimat Respimat [facility] Xalatan Xalatan Yes Na Diaz [address] [facility] in the l evening [facility] Arcapta Arcapta Yes Na Diaz [address] [facility]ohaler Neohaler [facility] Topamax Topamax Yes Na Diaz [address] [facility] Simethicone Simethicone Yes Na Diaz [address] [facility] after [facility] - meals and [facility] at bedtime l as needed [facility] Ferrous Ferrous Yes Na Diaz [address] Sulfate Sulfate [facility] Ketoconazol Ketoconazol Yes Na Diaz APPLY [facility] AFFECTED [facility] TOPICALLY l TWICE A [facility] DAY ent Clinics Restasis Restasis Yes Na Diaz [address] [facility] Ipratropium Ipratropium Yes Na Diaz [address] [facility] [place] in each [facility] nostril [facility] Lexapro Lexapro Yes Na Diaz [address] [facility] Latanoprost Latanoprost Yes Na Diaz [address] [facility] into [facility] affected [facility] eye in the l evening [facility] Trelegy Trelegy Yes Na Diaz [address] [facility] Ellipta Ellipta [facility] Gabapentin Gabapentin Yes Na Diaz [address] [facility] Azelastine Azelastine Yes Na Diaz [address] [facility] HCl HCl into [facility] Immunizations Ordered Filled Immunization Date Status Comments Sourc e Immunization Name Name Freeman Millard 2019-03-[address] [facility] FluAD FluAD 2018-02-[address] [facility] Td Td 2017-08-[address] [facility] 00:[facility]00 [facility] Procedures This patient has no known procedures. Encounters Start End Encounter Admission Attending Care Care Encounter Source Date/Time Date/Time Type Type Clinicians Facility Department ID 2021-04-10 Outpatient [facility] [id number] [place] 11:57:05 [facility] 2021-04-16 2021-04-16 amb[facility] [id number] [facility] 2021-04-12 2021-04-12 [facility] [id number] [facility] 2021-04-07 2021-04-09 [facility] [id number] [facility] 09:48:00 10:15:00 [facility] 2021-04-04 2021-04-04 amb[facility] [id number] [facility] 2020-10-24 2020-10-24 Outpatient [facility] [id number] [facility] 2020-10-24 2020-10-24 [facility] [id number] [facility] 2020-10-12 2020-10-12 Out[facility] [id number] [facility] 2020-04-27 2020-04-27 Outpatient [facility] [id number] [facility] 2020-04-11 2020-04-11 Outpatient [facility] [id number] [facility]00 [facility] Outpat[facility] Clin[facility] 2019-10-27 2019-10-27 [facility] [id number] [address] 10[facility]20:00 10:20:00 t B[facility] Bledsoe [employer] s - [facility] Medicine l Medicine Outpati ent Clinics 2019-04-28 2019-04-28 [facility] [id number] 10:40:00 10:40:00 t Bledsoe Bledsoe [employer] s - Drive [facility] l Medicine Outpati ent Clinics 2019-03-05 2019-03-05 [facility] [id number] 13[facility]40:00 13:40:00 t Bledsoe Bledsoe [employer] s - Drive [facility] Medicine Outpati ent Clinics 2018-11-04 2018-11-04 [facility] [id number] 10[facility]40:00 10:40:00 t Bledsoe Bledsoe [employer] s - Drive [facility] Medicine Outpati ent Clinics 2018-05-19 2018-05-19 [facility] [id number] 13:45:00 13:45:00 t Bledsoe Bledsoe [employer] s - Drive [facility] Medicine l Medicine Outpati ent Clinics 2018-05-08 2018-05-08 [facility] [id number] 10:30:00 10:30:00 t Bledsoe Bledsoe [employer] - Drive [facility] Medicine Medicine Outpati ent Clinics 2018-02-10 2018-02-10 [facility] [id number] 09:30:00 09:30:00 t Bledsoe Bledsoe [employer] - Drive [facility] Medicine Medicine Outpati ent Clinics 2017-11-04 2017-11-04 [facility] [id number] 10:00:00 10:00:00 t Bledsoe Bledsoe [employer] - Drive [facility] Medicine l Medicine Outpati ent Clinics 2017-09-05 2017-09-05 [facility] [id number] 15:57:00 15:57:00 t Bledsoe Bledsoe [employer] - Drive [facility] Medicine l Medicine Outpati ent Clinics 2017-08-20 2017-08-20 [facility] [id number] 08:30:00 08:30:00 [employer] [place] [facility] Medicine Medicine Outpati ent Clinics Results This patient has no known results.
--- NOTE | 2021-05-21 11:01 | ER ---
Nurse's Notes [facility] Name: Nemesio Santillan Age: 89 yrs Sex: Male : 1930 Arrival Date: 05/21/2021 Time: 10:27 Bed 14 Private MD: Diagnosis: Partial avulsion left great toenail Presentation: 05/21 10:36 Chief complaint: Patient states: He was clipping his toe nails last night and hand ll3 slipped and he ended up cutting half of his toe nail off. Coronavirus screen: At this time, the client does not indicate any symptoms associated with coronavirus-19. Ebola Screen: No symptoms or risks identified at this time. Initial Sepsis Screen: Does the patient meet any 2 criteria? No. Patient's initial sepsis screen is negative. Does the patient have a suspected source of infection? No. Patient's initial sepsis screen is negative. Risk Assessment: Do you want to hurt yourself or someone else? Patient reports no desire to harm self or others. Onset of symptoms was May 21, 2021. 10:36 Method Of Arrival: Wheelchair ll3 10:36 Acuity: DEVORA 4 ll3 Triage Assessment: 10:38 General: Appears in no apparent distress. uncomfortable, Behavior is calm, cooperative. ll3 Pain: Complains of pain in Left first toenail. Historical: - Allergies: 10:38 Sulfa (Sulfonamide Antibiotics); ll3 - PSHx: 10:38 AAA repair; heart stents; Tonsillectomy; ll3 - Immunization history:: Client reports receiving the 2nd dose of the Covid vaccine. - Social history:: Smoking status: Patient/guardian denies using tobacco. - Family history:: not pertinent. - Hospitalizations: : No recent hospitalization is reported. Screenin:14 Abuse screen: Denies threats or abuse. Denies injuries from another. Nutritional jg9 screening: No deficits noted. Tuberculosis screening: No symptoms or risk factors identified. Fall Risk None identified. Assessment: 11:00 Derm: Skin r great toe avulsion from nail clippers. jg9 Vital Signs: 10:36 BP 107 / 60; Pulse 81; Resp 15; Temp 97.3(TE); Pulse Ox 98% on 2 lpm NC; Weight 98.43 ll3 kg (R); Height 5 ft. 11 in. (180.34 cm) (R); Pain 8/10; 11:00 BP 110 / 64; Pulse 80; Resp 17; Pulse Ox 95% on 3 lpm NC; jg9 10:36 Body Mass Index 30.27 (98.43 kg, 180.34 cm) ll3 ED Course: 10:27 Patient arrived in ED. mr 10:38 Triage completed. ll3 10:38 Arm band placed on Patient placed in an exam room. ll3 10:45 Guillermo Jones MD is Attending Physician. rn 10:54 Socorro Zuniga, RN is Primary Nurse. jg9 11:00 Brent Denny DPM is Referral Physician. rn 11:00 Patient has correct armband on for positive identification. Bed in low position. Call jg9 light in reach. 11:07 Dressings: Kerlix non-adherent dressing x 1 right foot. jg9 11:15 No provider procedures requiring assistance completed. jg9 11:16 IV discontinued. jg9 Administered Medications: No medications were administered Outcome: 11:00 Discharge ordered by . rn 11:15 Discharged to home via wheelchair. jg9 11:15 Condition: stable 11:15 Discharge instructions given to patient, Instructed on discharge instructions, follow up and referral plans. Demonstrated understanding of instructions, follow-up care. 11:16 Patient left the ED. jg9 Signatures: Suellen Tinoco Guillermo Jones MD MD rn Loubet, Lynsea, RN RN 3 Socorro Zuniga RN RN jg9
--- NOTE | 2021-05-21 11:01 | EDPHYS ---
Physician Documentation [facility] Name: Nemesio Santillan Age: 89 yrs Sex: Male : 1930 Arrival Date: 05/21/2021 Time: 10:27 Bed 14 Private MD: ED Physician Guillermo Jones HPI: 05/21 10:56 This 89 yrs old Male presents to ER via Wheelchair with complaints of Toe nail problem. rn 10:56 The patient presents with an injury, pain, that is acute. The complaints affect the rn left foot. Onset: The symptoms/episode began/occurred just prior to arrival. Modifying factors: The symptoms are alleviated by nothing, the symptoms are aggravated by nothing. Associated signs and symptoms: Pertinent negatives: fever. Severity of symptoms: At their worst the symptoms were mild, in the emergency department the symptoms have improved. The patient has not experienced similar symptoms in the past. The patient has not recently seen a physician. Patient states was cutting left great toenail, is very thick and required leverage, states twisted hand and backside of nail partially lifted off causing some bleeding and pain. Bleeding has stopped. Only takes aspirin. No other injuries.. Historical: - Allergies: 10:38 Sulfa (Sulfonamide Antibiotics); ll3 - PSHx: 10:38 AAA repair; heart stents; Tonsillectomy; ll3 - Immunization history:: Client reports receiving the 2nd dose of the Covid vaccine. - Social history:: Smoking status: Patient/guardian denies using tobacco. - Family history:: not pertinent. - Hospitalizations: : No recent hospitalization is reported. ROS: 10:56 Constitutional: Negative for fever, chills, and weight loss, MS/Extremity: Positive for rn injury and bleeding to left great toenail Exam: 10:56 Constitutional: This is a well developed, well nourished patient who is awake, alert, rn and in no acute distress. MS/ Extremity: Pulses equal, no cyanosis. Neurovascular intact. Left first toenail with partial elevation of the proximal lateral nail, no active bleeding, no laceration. Still attached on the medial side and centrally with very minimal mobility. Vital Signs: 10:36 BP 107 / 60; Pulse 81; Resp 15; Temp 97.3(TE); Pulse Ox 98% on 2 lpm NC; Weight 98.43 ll3 kg (R); Height 5 ft. 11 in. (180.34 cm) (R); Pain 8/10; 11:00 BP 110 / 64; Pulse 80; Resp 17; Pulse Ox 95% on 3 lpm NC; jg9 10:36 Body Mass Index 30.27 (98.43 kg, 180.34 cm) ll3 MDM: 10:45 Patient medically screened. rn 10:59 Differential diagnosis: Toenail avulsion. Data reviewed: vital signs, nurses notes, and rn as a result, I will discharge patient. Counseling: I had a detailed discussion with the patient and/or guardian regarding: the historical points, exam findings, and any diagnostic results supporting the discharge/admit diagnosis, the need for outpatient follow up, to return to the emergency department if symptoms worsen or persist or if there are any questions or concerns that arise at home. Response to treatment: the patient's symptoms have mildly improved after treatment, and as a result, I will discharge patient. Special discussion: I discussed with the patient/guardian in detail that at this point there is no indication for admission to the hospital. It is understood, however, that if the symptoms persist or worsen the patient needs to return immediately for re-evaluation. Based on the history and exam findings, there is no indication for further emergent testing or inpatient evaluation. I discussed with the patient/guardian the need to see the resource recovery specialist for further evaluation of the symptoms. ED course: Patient with partial proximal toenail avulsion without active bleeding. No indication for emergent toenail removal. After discussion with patient, risks of removing nail with further damage outweigh benefits. We will follow-up with podiatry and return precautions given. Administered Medications: No medications were administered Disposition Summary: 05/21/21 11:00 Discharge Ordered Location: Home rn Problem: new rn Symptoms: have improved rn Condition: Stable rn Diagnosis - Partial avulsion left great toenail rn Followup: rn - With: Brent Denny DPM - When: 1 - 2 days - Reason: Recheck today's complaints, Re-evaluation by your physician Discharge Instructions: - Discharge Summary Sheet rn - Nail Avulsion rn Forms: - Medication Reconciliation Form rn - Thank You Letter rn - Antibiotic employee benefits attorney - Prescription Opioid Use rn Signatures: Jones, Guillermo, MD MD rn Loubet, Lynsea, RN RN ll3
[2021-05-21 11:34] VITALS: TEMP 97.3
[2021-05-21 11:36] VITALS: BP 110/64; O2SAT 95
== END 2021-05-21 11:16 | disposition home or self-care (01) ==
LOC: ER 10:22
DX: S91.202A Unspecified open wound of left great toe with damage to nail, initial encounter (principal); W45.8XXA Other foreign body or object entering through skin, initial encounter; Y92.009 Unspecified place in unspecified non-institutional (private) residence as the place of occurrence of the external cause
CPT/HCPCS: 99281